=== PATIENT | female | born 1975 | race Two or more races ===

== ENCOUNTER 2025-08-05 15:31 | Emergency (ER) | payer MEDICAID, OTHER ==
[~2025-08-05] VITALS: Ht 167.6 cm; Wt 83.9 kg
[2025-08-05 15:56] LABS: PLATELET COUNT (AUTO) 286 K/uL (150-450); RED BLOOD CELL COUNT(AUTO) 5.01 MIL/uL (4.0-5.2); RED CELL DISTRIBUTION WIDTH 14.3 % (11.5-15.0); WHITE BLOOD COUNT (AUTO) 5.6 K/uL (4.3-11.0)
[2025-08-05 16:05] LABS: CALCIUM, SERUM 9.1 mg/dL (8.5-10.1); CREATININE 0.7 mg/dL (0.6-1.3); SODIUM SERUM 139 mmol/L (136-145); UREA NITROGEN, BLOOD 9 mg/dL (7-18)
[2025-08-05 17:51] VITALS: BP 136/81; TEMP 98.3; O2SAT 99
== END 2025-08-05 17:52 | disposition home or self-care (01) ==
LOC: ER 15:40
DX: R07.89 Other chest pain (principal)
CPT/HCPCS: 36415; 71045-TC; 80048-TC; 84484-TC; 85025-TC